=== PATIENT | male | born 1965 | race Caucasian/White ===

== ENCOUNTER 2016-06-25 19:41 | Emergency (ER) | payer OTHER ==
--- NOTE | 2016-06-25 22:56 | ED NURSING NOTES ---
Clinical Report - Nurses [facility] [address] [place] [address] 06/25/2016 19:41 Patient: CHRISTOPHE DREW TRIAGE Triage time 19:59 Jun 25 2016. Acuity: LEVEL 3. Chief Complaint: CHILLS and MUSCLE ACHES. 20:03 06/25/16. SEPSIS SCREEN: Sepsis Screen: negative. Infection suspected/documented. IGNACIO COMA SCORE: Ignacio Coma Scale: 15- eyes open spontaneously (4); best verbal response- oriented x 4 (5); best motor response- obeys commands (6). --20:03 Sara Felder 19:59 06/25/16. BP: 171/102. HR: 80. RR: 20. O2 saturation: 100% on room air. Temp: 98 F (oral). Pain level now: 5/10. --20:03 Sara Felder. Weight: 95.2 kg stated. Height/Length: 74 inches Per Patient. BMI: 27. --20:03 Sara Felder. Medications Cozaar Oral 50 mg, daily. --20:01 Sara Felder Cipro Oral. --20:01 Sara Felder Hydrocodone-Acetaminophen Oral. --20:01 Sara Felder. Medication/allergy information source: the patient. --20:03 Sara Felder. Allergies No Known Drug Allergy. --20:01 Sara Felder. History Arrived by private vehicle. Historian: patient. Unaccompanied. Primary physician (tyler marie). ( Patient states he is being treated for UTI. He states he went to the walk in last night and had his urine checked as he recently had a bladder surgery and has an indwelling catheter. He states he has not began feeling better and feels very ill. He reports muscle aches, chills and loss of appetite.). PAST MEDICAL HX: Immunizations: up-to-date. SOCIAL HX: Never smoker. History of drug use: marijuana. No alcohol use. ABUSE ASSESSMENT: No report of abuse. SELF HARM ASSESSMENT: A self harm assessment was performed. The patient answered "no" to the question "Have you recently felt down, depressed, or hopeless?", "Have you noticed less interest or pleasure in doing things?", "Do you have thoughts of harming or killing yourself?", "Are you here because you tried to hurt yourself?", "Have you ever tried to hurt yourself before today?", "Have you recently had thoughts about harming or killing others?" and "Do you have any dangerous items in your possession?". FALL RISK ASSESSMENT: Fall risk assessment completed. No fall risk identified. NUTRITIONAL RISK ASSESSMENT: The nutritional risk assessment revealed no deficiencies. FUNCTIONAL ASSESSMENT: Functional assessment: no impairments noted. LEARNING NEEDS ASSESSMENT: The learning needs assessment revealed no barriers. SKIN INTEGRITY ASSESSMENT: Skin integrity risk assessment completed. No skin integrity risk identified. --20:03 Sara eFlder. PROBLEMS: Pedal Edema. Back Pain. Hypertension. Paraplegic. --20:02 Sara Felder. ADDITIONAL SURGERIES: Back surgery . Bladder surgery- artificial bladder sphincter (unsuccessful) . Right wrist surgery . --20:02 Sara Felder. Interventions ID band on patient. To treatment room. --20:03 Sara Felder. PHYSICAL ASSESSMENT 20:06/25/16. To room via wheelchair. GENERAL / NEURO / PSYCH: Alert. Oriented X 4. He appears uncomfortable. HEENT: No facial asymmetry noted. Mucous membranes are pink. RESPIRATORY: Respirations not labored. CVS: Normal sinus rhythm noted. GI / : ( Flank pain on right side). SKIN: Skin is warm and dry. --20:04 Sara Felder. NURSING PROGRESS NOTES 20:04 06/25/16. Pulse oximeter and NIBP monitor placed on patient; monitor alarms on. Patient gowned. Reassurance given to the patient. Two patient identifiers checked. Call light placed in reach. Side rails up x 1. Bed placed in lowest position. Brakes of bed on. Patient ready for evaluation- chart flagged and ED physician notified. --20:04 Sara Felder 20:30 06/25/16. Patient ID band checked for patient name and birthdate: patient confirmed. Blood samples drawn from the right antecubital space with 23g butterfly by nurse ; labeled in presence of the patient and sent to lab: rainbow set: blood culture (1st set). --20:37 BradfordAndrewSara 20:50 06/25/2016 Two (2) unsuccessful IV access attempts including the left upper arm and hand. Applied bandaid and bandage. --20:50 Cm Echols R.N. 21:16 06/25/2016 Site #1 started via IV in the right forearm with an 20g angiocath, with aseptic technique and good blood return; one attempt. Saline lock flushed with 10 mL saline. --21:16 Bradford Sara 21:06/25/2016 Started bag #1 1000 mL IV Fluids IV NS (Saline); at 1000 mL/hr over 1 hour(s) via site #1 via IV pump. Allergies verified and confirmed 5 rights. IV patency established. IV site checked: no pain, redness, or swelling. IV flushed thoroughly pre- and post-medication administration. --21:16 Bradford Sara 21:06/25/2016 Clonidine PO Tablets 0.2 mg given. Allergies verified and confirmed 5 rights. --21:16 Sara Felder Patient ID band checked for patient name and birthdate: patient confirmed. Instructions provided to collect clean catch urine and patient verbalized understanding. Catheterized urine collected with return of yellow-colored cloudy urine; sample sent to lab for urinalysis and culture. (Pulled from patients boyd). --21:16 Sara Felder 21:06/25/16. BP: 160/97. HR: 79. RR: 20. O2 saturation: 97% on room air. --21:16 Sara Felder 22:06/25/2016 IV Fluids IV NS Discontinued: bag #1 completed. Total amount infused: 1000 mL. IV patency established. IV site checked: no pain, redness, or swelling. IV flushed thoroughly. --22:08 Sara Felder 22:06/25/16. BP: 157/96. HR: 76. RR: 20. O2 saturation: 99% on room air. Pain level now: 5/10. --22:08 Sara Felder. DISPOSITION / DISCHARGE 22:56 06/25/16. BP: 147/86. HR: 70. RR: 20. O2 saturation: 98% on room air. Temp: 98 F (oral). Pain level now: 08/11. --22:57 Sara Felder 22:55 06/25/2016 Site #1 removed upon discharge. Catheter intact. Bandaid applied. --23:14 Sara Felder 22:57 06/25/16. Condition at departure: stable. No learning barriers present. Discharge instructions provided and reviewed with the patient. Reviewed need for increased fluid intake. Patient verbalized understanding. Written instructions provided in Portuguese. ( Follow up with your PCP in three days. Increase fluids and continue taking the antibiotics as directed. We will call you if your urine cultures grow any concerning bacteria. Return if symptoms worsen.). The patient was discharged by the physician. He was discharged home and accompanied by music therapy specialist. He left the Emergency Department in a wheelchair and via private vehicle. Animal Attendant driving. --23:14 Sara Felder 22:57 06/25/16. Condition at departure: stable. The goals identified in the patient's plan of care were met. FALL RISK ASSESSMENT: Fall risk assessment completed. No fall risk identified. --22:57 Sara Felder. Locked/Released at 06/25/2016 23:15 by Sara Felder,
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
--- NOTE | 2016-06-25 22:57 | ED ORDER SUMMARY ---
..... Patient: CHRISTOPHE DREW OrderSheet [facility] VisitID: [id number] [address] [place] [address] 51y, M Registration Date/Time: 06/25/2016 ORDER SHEET Weight: 95.2 kg (stated) Allergies: No Known Drug Allergy GENERAL ORDERS: Blood Culture (Yes) (cipro) Urgent (20:15 06/25/2016 Tali TURNER) (Ack 20:18 AMcQuoid ER Tech1) (20:35 HSoule) CBC w Diff Urgent (20:16 06/25/2016 Tali TURNER) (Ack 20:18 AMcQuoid ER Tech1) (20:35 HSoule) CMP Urgent (20:16 06/25/2016 Tali TURNER) (Ack 20:18 AMcQuoid ER Tech1) (20:35 HSoule) UA-Culture if indicated Urgent (20:16 06/25/2016 Tali TURNER) (Ack 20:18 AMcQuoid ER Tech1) (21:16 HSoule) Amylase Urgent (20:16 06/25/2016 Tali TURNER) (Ack 20:18 AMcQuoid ER Tech1) (20:35 HSoule) Lipase Urgent (20:16 06/25/2016 Tali TURNER) (Ack 20:18 AMcQuoid ER Tech1) (20:35 HSoule) MEDICATION ORDERS: - (levothyroxinne 125 g by mouth now) (20:17 06/25/2016 Tali TURNER) (Ack 20:32 HSoule) (Cancelled: Other20:36 Tali TURNER) Clonidine PO 0.2 mg (NOW) (20:56 06/25/2016 Tali TURNER) (Ack 20:56 HSoule) (21:16 HSoule) IV FLUIDS: IV NS : initial bolus 1000 mL (1000 mL/hr), then 150 mL/hr for 4h (NOW); Urgent (20:16 06/25/2016 Tali TURNER) (Ack 20:17 HSoule) (21:16 HSoule) ORDER SHEET NOTES: [Electronically signed by Sara Felder (23:15 06/25/2016)] [Electronically signed by Carlos Malloy Dr. (01:14 06/28/2016)] [Electronically locked/signed by Sara Felder (23:15 06/25/2016)]
--- NOTE | 2016-06-25 22:57 | ED ORDER SUMMARY ---
..... Patient: CHRISTOPHE DREW OrderSheet [facility] VisitID: [id number] [address] [place] [address] 51y, M Registration Date/Time: 06/25/2016 ORDER SHEET Weight: 95.2 kg (stated) Allergies: No Known Drug Allergy GENERAL ORDERS: Blood Culture (Yes) (cipro) Urgent (20:15 06/25/2016 Tali TURNER) (Ack 20:18 AMcQuoid ER Tech1) (20:35 HSoule) CBC w Diff Urgent (20:16 06/25/2016 Tali TURNER) (Ack 20:18 AMcQuoid ER Tech1) (20:35 HSoule) CMP Urgent (20:16 06/25/2016 Tali TURNER) (Ack 20:18 AMcQuoid ER Tech1) (20:35 HSoule) UA-Culture if indicated Urgent (20:16 06/25/2016 Tali TURNER) (Ack 20:18 AMcQuoid ER Tech1) (21:16 HSoule) Amylase Urgent (20:16 06/25/2016 Tali TURNER) (Ack 20:18 AMcQuoid ER Tech1) (20:35 HSoule) Lipase Urgent (20:16 06/25/2016 Tali TURNER) (Ack 20:18 AMcQuoid ER Tech1) (20:35 HSoule) MEDICATION ORDERS: - (levothyroxinne 125 g by mouth now) (20:17 06/25/2016 Tali TURNER) (Ack 20:32 HSoule) (Cancelled: Other20:36 Tali TURNER) Clonidine PO 0.2 mg (NOW) (20:56 06/25/2016 Tali TURNER) (Ack 20:56 HSoule) (21:16 HSoule) IV FLUIDS: IV NS : initial bolus 1000 mL (1000 mL/hr), then 150 mL/hr for 4h (NOW); Urgent (20:16 06/25/2016 Tali TURNER) (Ack 20:17 HSoule) (21:16 HSoule) ORDER SHEET NOTES: [Electronically signed by Sara Felder (23:15 06/25/2016)] [Electronically signed by Carlos Malloy Dr. (01:14 06/28/2016)] [Electronically locked/signed by Sara Felder (23:15 06/25/2016)]
--- NOTE | 2016-06-28 01:15 | ED MAR SUMMARY ---
..... Medication Administration Record [facility] [address] [place] [address] Patient: CHRISTOPHE DREW Visit ID: [id number] 51y, M Weight: 95.2 kg Height/Length: 74 in BMI: 27 ALLERGIES: No Known Drug Allergy Start 21:16 06/25/2016 Sara Felder,, Stop 22:08 06/25/2016 Sara Felder, Medication Administered: IV NS (SALINE), Dose: IV Fluids over 1 hour(s), Rate: 1000 mL/hr, Dispensed: 1000 mL bag, Site: #1 right forearm. Medication Ordered: IV NS : initial bolus 1000 mL (1000 mL/hr), then 150 mL/hr for 4h (NOW); Urgent. Given 21:16 06/25/2016 Sara Felder, Medication Administered: CLONIDINE [PO], Dose: 0.2 mg Tablets PO. Medication Ordered: Clonidine PO 0.2 mg (NOW).
--- NOTE | 2016-06-28 01:15 | ED MED RECONCILIATION SUMMARY ---
Patient: CHRISTOPHE DREW Medication Reconciliation Report [facility] VisitID: [id number] [address] [place] [address] 51y, M Registration Date/Time: 06/25/2016 Weight: 95.2 kg Height/Length: 74 in. BMI: 27.0 ALLERGIES: No Known Drug Allergy The patient's Home Medications are listed below: CONTINUE TAKING THE FOLLOWING MEDICATIONS: Cipro Oral Cozaar Oral 50 mg, daily Hydrocodone-Acetaminophen Oral The source(s) of the original Home Medication information: patient The following Medications were given to the patient in the Emergency Department: IV NS IV Fluids bolus 0, then 1000 mL/hr, administered: 06/25/2016 9:16:00 PM Clonidine [PO] PO 0.2 mg, administered: 06/25/2016 9:16:00 PM The following Medications were prescribed to the patient: None.
--- NOTE | 2016-06-28 01:15 | ED DISCHARGE INSTRUCTIONS ---
Patient: CHRISTOPHE DREW General Instructions [facility] VisitID: [id number] [place] [address] 51y, M Registration Date/Time: 06/25/2016 06/25/2016 19:59 BP: 171/102. HR: 80. RR: 20. O2 saturation: 100%. Temp: 98 F. Pain level now: 5/10. Hypertensive. Oxygen saturation normal. Acute urinary tract infection (subsequent encounter). Essential hypertension. INSTRUCTIONS (a culture was run on your urine. If the bacteria causing your urinary tract infection are resistant to the antibiotic, we will give you a call for a different antibiotic. Continue to take the one you have been prescribed.). Warnings: GENERAL WARNINGS: Return or contact your physician immediately if your condition worsens or changes unexpectedly, if not improving as expected, or if other problems arise. Specifically return if pain, vomiting, bleeding, breathing difficulty or fever. Your Current Medications: CONTINUE TAKING THE FOLLOWING MEDICATIONS: Cipro Oral. Cozaar Oral : 50 mg daily. Hydrocodone-Acetaminophen Oral. Follow-up: Return to the emergency department as needed. Follow up with your doctor in three days. Reason for referral: recheck today's concerns. Summary of care provided to patient via paper. Screening today revealed the patient's blood pressure to be in the hypertensive range. The patient should follow up with a primary care provider for blood pressure management. Understanding of the discharge instructions verbalized by patient. ADDITIONAL INFORMATION Bladder Infection,Male (Adult) A bladder infection ("cystitis" or "UTI") usually causes a constant urge to urinate, and a burning when passing urine. Urine may be cloudy, smelly or dark. There may be also be pain in the lower abdomen. Cystitis in males is not common. It may be caused by a partial blockage in the urinary system that keeps the bladder from emptying completely. This is most often related to an enlarged prostate gland. Home Care: Drink lots of fluids (at least 6-8 glasses a day). This will flush the bacteria out of your bladder. Avoid sexual intercourse until your symptoms are gone. Avoid caffeine, alcohol, and spicy foods. They could irritate the bladder. A bladder infection is treated with antibiotics. You may also be given Pyridium (generic - phenazopyridine) to reduce burning with urination. This will cause urine to become a bright orange color, which can stain clothing. Follow Up with your doctor or this facility if ALL symptoms have not cleared within five days. It is important to keep your follow up appointment to discuss with your doctor the need for further tests of the urinary tract. Get Prompt Medical Attention if any of the following occur: Fever of 100.4F (38C) or higher, or as directed by your healthcare provider No improvement by the third day of treatment Increasing back or abdominal pain Repeated vomiting; unable to keep medicine down Weakness, dizziness or fainting High Blood Pressure -- To Be Confirmed [No Tx] Your blood pressure was higher today than normal. Sometimes anxiety or pain can cause a temporary rise in blood pressure that later returns to normal. If your blood pressure is high on one measurement, this does not mean that you have hypertension (a chronic illness). However, you must have your blood pressure measured again within the next few days to find out if its still high. A normal blood pressure is 120/80 or less. The first (top) number is the "systolic" pressure. The second (bottom) number is the "diastolic" pressure. Hypertension exists when either the top number is 140 or higher, OR the bottom number is 90 or higher on repeated measurements. Blood pressure in the range of 120-140 (systolic) or 80-89 (diastolic) is considered "pre-hypertension". This means your are at risk for getting hypertension. You should have regular blood pressure checks to be sure your blood pressure is not rising. Home Care: Measure your blood pressure on 3 different days and write down the results. This can be done at your doctor's office or this facility. Some pharmacies and grocery stores offer automated blood pressure machines for your use. Follow Up: If your blood pressure is "high" (over 120/80) on 2 out of 3 days, you will need to follow up with your doctor for further evaluation and treatment. DO NOT PUT THIS OFF! Untreated high blood pressure increases the risk for heart attack, also known as acute myocardial infarction, or AMI, and stroke. It is a treatable condition. Get Prompt Medical Attention if any of the following occur: Chest pain or shortness of breath Severe headache Throbbing or rushing sound in the ears Nosebleed Sudden severe abdominal pain Extreme drowsiness, confusion or fainting Dizziness or vertigo (dizziness with spinning sensation) Weakness of an arm or leg or one side of the face Difficulty with speech or vision You have been given the following additional information: Bladder Infection, Male (Adult) Hypertension, To Be Confirmed (Electronically signed by Carlos Malloy Dr. 06/28/2016 1:14)
--- NOTE | 2016-06-28 01:15 | ED MAR SUMMARY ---
..... Medication Administration Record [facility] [address] [place] [address] Patient: CHRISTOPHE DREW Visit ID: [id number] 51y, M Weight: 95.2 kg Height/Length: 74 in BMI: 27 ALLERGIES: No Known Drug Allergy Start 21:16 06/25/2016 Sara Felder,, Stop 22:08 06/25/2016 Sara Felder, Medication Administered: IV NS (SALINE), Dose: IV Fluids over 1 hour(s), Rate: 1000 mL/hr, Dispensed: 1000 mL bag, Site: #1 right forearm. Medication Ordered: IV NS : initial bolus 1000 mL (1000 mL/hr), then 150 mL/hr for 4h (NOW); Urgent. Given 21:16 06/25/2016 Sara Felder, Medication Administered: CLONIDINE [PO], Dose: 0.2 mg Tablets PO. Medication Ordered: Clonidine PO 0.2 mg (NOW).
--- NOTE | 2016-06-28 01:15 | ED MED RECONCILIATION SUMMARY ---
Patient: CHRISTOPHE DREW Medication Reconciliation Report [facility] VisitID: [id number] [address] [place] [address] 51y, M Registration Date/Time: 06/25/2016 Weight: 95.2 kg Height/Length: 74 in. BMI: 27.0 ALLERGIES: No Known Drug Allergy The patient's Home Medications are listed below: CONTINUE TAKING THE FOLLOWING MEDICATIONS: Cipro Oral Cozaar Oral 50 mg, daily Hydrocodone-Acetaminophen Oral The source(s) of the original Home Medication information: patient The following Medications were given to the patient in the Emergency Department: IV NS IV Fluids bolus 0, then 1000 mL/hr, administered: 06/25/2016 9:16:00 PM Clonidine [PO] PO 0.2 mg, administered: 06/25/2016 9:16:00 PM The following Medications were prescribed to the patient: None.
== END 2016-06-25 23:00 | disposition home or self-care (01) ==
LOC: ED SRH 19:41
DX: N39.0 Urinary tract infection, site not specified (principal); I10 Essential (primary) hypertension; Z79.899 Other long term (current) drug therapy
CPT/HCPCS: 90004; 90065; 90070; 90074; 90100; 90469; 92235; 92530; 95059

== ENCOUNTER 2016-09-28 20:58 | Emergency (ER) | payer OTHER ==
--- NOTE | 2016-09-29 00:32 | ED ORDER SUMMARY ---
..... Patient: CHRISTOPHE DREW OrderSheet [facility] VisitID: [id number] [address] [place] [address] 51y, M Registration Date/Time: 09/28/2016 ORDER SHEET Weight: 99.7 kg (stated) Allergies: No Known Drug Allergy GENERAL ORDERS: CBC w Diff Urgent (21:57 09/28/2016 Sp TURNER) (Ack 22:00 ALawrence ER Tech1) (Collected 22:49 RMarsden R.N.) (23:33 ALawrence ER Tech1) CMP Urgent (21:57 09/28/2016 Sp TURNER) (Ack 22:00 ALawrence ER Tech1) (Collected 22:49 RMarsden R.N.) (23:33 ALawrence ER Tech1) UA-Culture if indicated Urgent (21:57 09/28/2016 Sp TURNER) (Collected 21:57 RMarsden R.N.) (22:43 ALawrence ER Tech1) Lactate, Serum Urgent (21:57 09/28/2016 Sp TURNER) (Ack 22:00 ALawrence ER Tech1) (Collected 22:49 RMarsden R.N.) (23:37 RMarsden R.N.) - (NEW TUBING TO COLLECT SAMPLE) (21:58 09/28/2016 Sp TURNER) (22:43 ALawrence ER Tech1) MEDICATION ORDERS: IV FLUIDS: IV Saline Lock (21:57 09/28/2016 Sp TURNER) (22:52 RMarsden R.N.) Ceftriaxone IV 1 gm/50mL (NOW) (00:30 09/29/2016 Sp TURNER) (Ack 0:34 RMarsden R.N.) (0:42 RMarsden R.N.) ORDER SHEET NOTES: [Electronically signed by Ailin Valdez R.N. (02:58 09/29/2016)] [Electronically signed by Warren Hayward MD (12:17 10/01/2016)] [Electronically locked/signed by Ailin Valdez R.N. (02:58 09/29/2016)]
--- NOTE | 2016-09-29 00:32 | ED NURSING NOTES ---
Clinical Report - Nurses [facility] [address] [place] [address] 09/28/2016 20:57 Patient: CHRISTOPHE DREW TRIAGE Triage time 21:37. Acuity: LEVEL 3. Chief Complaint: CHILLS and ACHES ("urine smells like ammonia"). 21:54 09/28/16. Alert. No acute distress. SEPSIS SCREEN: Sepsis Screen. Negative (no infection suspected/documented). IGNACIO COMA SCORE: Ignacio Coma Scale: 15- eyes open spontaneously (4); best verbal response- oriented x 4 (5); best motor response- obeys commands (6). --21:54 Ailin Valdez R.N. 21:40 09/28/16. BP: 141/78. HR: 93. RR: 16. O2 saturation: 94%. Temp: 98.8 F. Pain level now: 09/11. --21:54 Ailin Valdez R.N. Weight: 99.7 kg stated. Height/Length: 74 inches Per Patient. BMI: 28.2. --21:53 Ailin Valdez R.N. Medications Cozaar Oral 50 mg, daily. --21:51 Ailin Valdez R.N. Stool Softener Oral. --21:51 Ailin Valdez R.N. Vicodin Oral. --21:52 Ailin Valdez R.N. Multivitamins Oral. --21:52 Ailin Valdez R.N. Allergies No Known Drug Allergy. --21:51 Ailin Valdez R.N. History Arrived by private vehicle. Historian: patient. Accompanied by family. Primary physician (Dr Esteves). Onset. (3 days ago). ( Patient states "My urine smells strongly of ammonia, even though I've been drinking a lot of water". He states he does not feel any sensation in his urethra due to T12 paraplegia.). 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 PAST MEDICAL HX: Immunizations: up-to-date. SOCIAL HX: Smoker- current status unknown. Alcohol use. (patient states he hasnt had a drink since april.). No drug use. No known contact with a sick individual. FALL RISK ASSESSMENT: Fall risk assessment completed. No fall risk identified. NUTRITIONAL RISK ASSESSMENT: The nutritional risk assessment revealed no deficiencies. FUNCTIONAL ASSESSMENT: Functional assessment: no impairments noted. LEARNING NEEDS ASSESSMENT: The learning needs assessment revealed no barriers. SKIN INTEGRITY ASSESSMENT: Skin integrity risk assessment completed. No skin integrity risk identified. --21:54 Ailin Valdez R.N. PROBLEMS: Pedal Edema. Back Pain. Hypertension. Paraplegic. --21:52 Ailin Valdez R.N. UTI - Urinary Tract Infection [RuleOut]. --00:32 Warren Hayward MD The following entry was modified by Warren Hayward MD, 00:32 <<STRICKEN ENTRY-- UTI - Urinary Tract Infection. --22:53 Ailin Valdez R.N. --END STRIKE>>. ADDITIONAL SURGERIES: Back surgery . Bladder surgery- artificial bladder sphincter (unsuccessful) . Right wrist surgery . --21:52 Ailin Valdez R.N. Interventions ID band on patient. To treatment room. --21:54 Ailin Valdez R.N. PHYSICAL ASSESSMENT 21:55 09/28/16. To room via wheelchair. GENERAL / NEURO / PSYCH: Alert. Oriented X 4. Appears in no acute distress. HEENT: Mucous membranes are pink. RESPIRATORY: Respirations not labored. CVS: Capillary refill less than 2 seconds. GI / : Abdomen soft. Bowel sounds within normal limits. SKIN: Skin is warm and dry. --21:55 Ailin Valdez R.N. NURSING PROGRESS NOTES 21:55 09/28/16. Patient gowned. Two patient identifiers checked. Call light placed in reach. Side rails up x 2. Bed placed in lowest position. Brakes of bed on. Patient ready for evaluation- chart flagged and notification provided. --21:55 Ailin Valdez R.N. 22:42 09/28/2016 Site #1 started via IV in the right wrist with an 20g angiocath; one attempt. Blood drawn: rainbow set. Labeled in the presence of the patient and sent to the lab. Saline lock flushed with 10 mL saline. --22:52 Ailin Valdez R.N. 00:37 09/29/2016 Started 1 gm of Ceftriaxone IVPB in bag #1 50 mL; at 110 mL/hr over 28 minute(s) via site #1 via IV pump. Allergies verified and confirmed 5 rights. IV patency established. IV site checked: no pain, redness, or swelling. IV flushed thoroughly pre- and post-medication administration. Completed per protocol. --00:42 Ailin Valdez R.N. 01:14 09/29/2016 Ceftriaxone IVPB Discontinued: bag #1 completed upon discharge. Total amount infused: 50 mL. IV patency established. IV site checked: no pain, redness, or swelling. IV flushed thoroughly. --01:21 Ailin Valdez R.N. DISPOSITION / DISCHARGE 01:18. No learning barriers present. Discharge instructions provided and reviewed with the patient. Reviewed warnings. Reviewed medication(s). Treatments reviewed. Patient verbalized understanding. Written instructions provided in [place]er. The patient was discharged home and accompanied by spouse. He left the Emergency Department in a wheelchair and via private vehicle. Spouse driving. --01:21 Ailin Valdez R.N. 01:16 09/29/2016 Site #1 removed upon discharge. Manual pressure and bandaid applied. --01:21 Ailin Valdez R.N. 01:00 09/29/16. BP: 139/62. HR: 81. RR: 16. O2 saturation: 99%. Temp: deferred. Pain level now: 08/11. --01:22 Ailin Valdez R.N. Locked/Released at 09/29/2016 2:58 by Ailin Valdez R.N.
--- NOTE | 2016-09-29 00:32 | ED CLINICAL REPORT ---
Clinical Report - Physicians/Mid Levels [facility] [address] [place] [address] 09/28/2016 20:57 Patient: CHRISTOPHE DREW Time Seen: 21:50. Arrived- By private vehicle. Historian- patient. HISTORY OF PRESENT ILLNESS Chief Complaint: ASENCIO PROBLEM. (WITH CHILLS AND ASENCIO). This started today Mr. Drew is paraplegic. He notes chills and a feverish feeling. His asencio is draining normally. He has had a Asencio catheter for over a year and multiple failed sphincter procedures. The problem is described as moderate. No penile discharge, discomfort with urination, urinary frequency, Asencio catheter problem or inguinal swelling. Sexual history is noncontributory. Recent medical care: The patient was seen recently by a health care provider. ( 3 MONTHS PREVIOUS URINE CULTURE: CULTURE, URINE DATE: 06/28/16 CULTURE, URINE DATE: 06/28/16 PRELIM REPORT: FINAL REPORT GDE QUANTITATIVE URINE GROWTH: 50,000 TO 100,000 CFU/mL MXD QUANTITATIVE URINE GROWTH: 50,000 TO 100,000 CFU/mL ID AND SENS TO FOLLOW: NO FURTHER WORKUP AMOXICILLIN/CLAVULANATE AMPICILLIN S AMPICILLIN/SULBACTAM CEFAZOLIN CEFTRIAXONE CEPHALOTHIN CIPROFLOXACIN I DAPTOMYCIN S Fluoroquinolones should be considered secondary choices for Enterococcus therapy and used only when primary choices are contraindicated. GENTAMICIN LEVOFLOXACIN S LINEZOLID S NITROFURANTOIN S NORFLOXACIN OXACILLIN PENICILLIN TRIMETHOPRIM/SULFAMETHOXAZOLE VANCOMYCIN S GENTAMICIN SYNERGY SCREEN). REVIEW OF SYSTEMS No fever, abdominal pain, vomiting, sore throat or chest pain. No difficulty breathing. He has had chills. PAST HISTORY ( PCP: BRYAN Brar. Urologist [facility] T12l1 Paraplegin 30 PCP - Danielito Mendes at the [facility] in [place] [facility]rology - Noe Jose at [facility]. Problems: Pedal Edema. Back Pain. Hypertension. Paraplegic. Additional Surgeries: Back surgery . Bladder surgery- artificial bladder sphincter (unsuccessful) . Right wrist surgery). ADDITIONAL NOTES The nursing notes have been reviewed. PHYSICAL EXAM Vital Signs: 09/29/2016 01:00 BP: 139/62. HR: 81. RR: 16. O2 saturation: 99%. Pain level now: 510. 09/28/2016 21:40 BP: 141/78. HR: 93. RR: 16. O2 saturation: 94%. Temp: 98.8 F. Pain level now: 6/10. Appearance: Alert. No acute distress. ENT: Pharynx normal. CVS: Heart sounds normal. Respiratory: No respiratory distress. Abdomen: Not soft. Skin: Skin warm. Normal skin color. LABS, X-RAYS, AND EKG Laboratory Tests: Lactate, Serum: (GEENA: 09/29/2016 00:15) ( [facility] 09/29/2016 00:54) Final results Test Result Flag Units (Reference) LACTIC ACID 1.3 mmol/L (0.4-2.0) UA-Culture if indicated: (GEENA: 09/28/2016 21:41) ( [facility] 09/28/2016 22:53) Final results Test Result Flag Units (Reference) URINE COLOR YELLOW URINE APPEARANCE SL CLOUDY URINE GLUCOSE NEGATIVE (NEGATIVE) URINE BILIRUBIN NEGATIVE (NEGATIVE) URINE KETONE NEGATIVE (NEGATIVE) URINE SPECIFIC GRAVITY 1.010 (1.010-1.030) URINE PH 7.5 (5.0-8.0) URINE PROTEIN NEGATIVE (NEGATIVE) URINE UROBILINOGEN 1.0 EU/dL (0.2-1.0) URINE NITRITE NEGATIVE (NEGATIVE) URINE BLOOD 1+ (NEGATIVE) URINE LEUK ESTERASE POSITIVE (NEGATIVE) URINE RBC 0-1 rbc/hpf (0-1) URINE WBC 1-3 wbc/hpf (0-1) URINE EPITHELIAL CELLS 0-1 EPI/hpf (0-5) URINE BACTERIA MODERATE (2+ TO 3+) (NONE SEEN) URINE COMMENT CULTURE INDICATED 2+ TRIPLE PHOSPHATEURINE CULTURES ARE SET-UP BASED ON THE FOLLOWING CRITERIA:POSITIVE NITRITEPOSITIVE LEUKOCYTE ESTERASEGREATER THAN 10 WHITE BLOOD CELLSMODERATE (2+) OR GREATER BACTERIA CBC w Diff: (GEENA: 09/28/2016 22:41) ( [facility] 09/28/2016 22:55) Final results Test Result Flag Units (Reference) WHITE BLOOD COUNT 9.5 K/uL (4.5-11.5) RED BLOOD COUNT 4.89 M/uL (4.50-5.90) HEMOGLOBIN 14.0 gm/dL (13.5-17.5) HEMATOCRIT 41.7 % (41.0-53.0) MEAN CELL VOLUME 85 fL (80-100) MEAN CORPUSCULAR HGB 29 pg (26-34) MEAN CORPUSCULAR HGB CONC 34 g/dL (31-37) RED CELL DISTRIBUTION WIDTH 13.3 % (11.6-14.8) PLATELET COUNT 145 L K/uL (150-400) LYMPH % 27.3 % (25-40) MONO % 4.6 % (3-14) GRANULOCYTE % 68.1 % (53-90) CMP: (GEENA: 09/28/2016 22:41) ( MsgRcvd 09/28/2016 23:07) Final results Test Result Flag Units (Reference) GLUCOSE 152 H mg/dL (70-110) BUN 20 H mg/dL (7-18) CREATININE 0.9 mg/dL (0.6-1.3) Estimated GFR >60 mL/min Estimated GFR- >60 mL/min Note: Persistent reduction over 3 months in eGFR<60 mL/min/1.73 m2 defines CKD. Patients with eGFR values>=60 mL/min/1.73 m2 may also have CKD if evidence ofpersistent proteinuria. Additional information may be foundat www.kidney.org. SODIUM 140 mmol/L (136-145) POTASSIUM 3.8 mmol/L (3.5-5.1) CHLORIDE 104 mmol/L (98-107) CARBON DIOXIDE 27 mmol/L (21-32) CALCIUM 8.2 L mg/dL (8.5-10.1) TOTAL PROTEIN 6.7 g/dL (6.4-8.2) ALBUMIN 3.5 g/dL (3.3-5.0) BILIRUBIN, TOTAL 0.4 mg/dL (0.0-1.0) ALKALINE PHOSPHATASE 67 U/L (46-116) AST (SGOT) 17 U/L (15-37) ALT (SGPT) 28 U/L (12-78) Culture, Urine: (GEENA: 09/28/2016 21:41) ( MsgRcvd 09/30/2016 10:57) Final results Test Result Flag Units (Reference) CULTURE, URINE DATE: 09/30/16 NO SIGNIFICANT ISOLATION: NO SIGNIFICANT ISOLATION PRELIM REPORT: FINAL REPORT . PROGRESS AND PROCEDURES Course of Care: Pt does not wish to take his pants off but tells me that he regularly checks himself for skin breakdown and he tells me that he does not have any skin breakdown. 21:57 09/28/16. Q SOFFA negative but will need to be treated for UTI on the basis of chills and prior history even though the UA is not impressive. Disposition: Discharged. Condition: stable. CLINICAL IMPRESSION Probable urinary tract infection. INSTRUCTIONS (IMMEDIATE RECHECK IF WORSE). Prescription Medications: Macrobid 100 mg: take 1 capsule orally every 12 hours for 10 days. No refill. Follow-up: Follow up with your doctor in five days. Understanding of the discharge instructions verbalized by patient. (Electronically signed by Warren Hayward MD 10/01/2016 12:17)
--- NOTE | 2016-09-29 00:32 | ED NURSING NOTES ---
Clinical Report - Nurses [facility] [address] [place] [address] 09/28/2016 20:57 Patient: CHRISTOPHE DREW TRIAGE Triage time 21:37. Acuity: LEVEL 3. Chief Complaint: CHILLS and ACHES ("urine smells like ammonia"). 21:54 09/28/16. Alert. No acute distress. SEPSIS SCREEN: Sepsis Screen. Negative (no infection suspected/documented). IGNACIO COMA SCORE: Ignacio Coma Scale: 15- eyes open spontaneously (4); best verbal response- oriented x 4 (5); best motor response- obeys commands (6). --21:54 Ailin Valdez R.N. 21:40 09/28/16. BP: 141/78. HR: 93. RR: 16. O2 saturation: 94%. Temp: 98.8 F. Pain level now: 09/11. --21:54 Ailin Valdez R.N. Weight: 99.7 kg stated. Height/Length: 74 inches Per Patient. BMI: 28.2. --21:53 Ailin Valdez R.N. Medications Cozaar Oral 50 mg, daily. --21:51 Ailin Vladez R.N. Stool Softener Oral. --21:51 Ailin Valdez R.N. Vicodin Oral. --21:52 Ailin Valdez R.N. Multivitamins Oral. --21:52 Ailin Valdez R.N. Allergies No Known Drug Allergy. --21:51 Ailin Valdez R.N. History Arrived by private vehicle. Historian: patient. Accompanied by family. Primary physician (Dr Esteves). Onset. (3 days ago). ( Patient states "My urine smells strongly of ammonia, even though I've been drinking a lot of water". He states he does not feel any sensation in his urethra due to T12 paraplegia.). 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 PAST MEDICAL HX: Immunizations: up-to-date. SOCIAL HX: Smoker- current status unknown. Alcohol use. (patient states he hasnt had a drink since april.). No drug use. No known contact with a sick individual. FALL RISK ASSESSMENT: Fall risk assessment completed. No fall risk identified. NUTRITIONAL RISK ASSESSMENT: The nutritional risk assessment revealed no deficiencies. FUNCTIONAL ASSESSMENT: Functional assessment: no impairments noted. LEARNING NEEDS ASSESSMENT: The learning needs assessment revealed no barriers. SKIN INTEGRITY ASSESSMENT: Skin integrity risk assessment completed. No skin integrity risk identified. --21:54 Ailin Valdez R.N. PROBLEMS: Pedal Edema. Back Pain. Hypertension. Paraplegic. --21:52 Ailin Valdez R.N. UTI - Urinary Tract Infection [RuleOut]. --00:32 Warren Hayward MD The following entry was modified by Warren Hawyard MD, 00:32 <<STRICKEN ENTRY-- UTI - Urinary Tract Infection. --22:53 Ailin Valdez R.N. --END STRIKE>>. ADDITIONAL SURGERIES: Back surgery . Bladder surgery- artificial bladder sphincter (unsuccessful) . Right wrist surgery . --21:52 Ailin Valdez R.N. Interventions ID band on patient. To treatment room. --21:54 Ailin Valdez R.N. PHYSICAL ASSESSMENT 21:55 09/28/16. To room via wheelchair. GENERAL / NEURO / PSYCH: Alert. Oriented X 4. Appears in no acute distress. HEENT: Mucous membranes are pink. RESPIRATORY: Respirations not labored. CVS: Capillary refill less than 2 seconds. GI / : Abdomen soft. Bowel sounds within normal limits. SKIN: Skin is warm and dry. --21:55 Ailin Valdez R.N. NURSING PROGRESS NOTES 21:55 09/28/16. Patient gowned. Two patient identifiers checked. Call light placed in reach. Side rails up x 2. Bed placed in lowest position. Brakes of bed on. Patient ready for evaluation- chart flagged and notification provided. --21:55 Ailin Valdez R.N. 22:42 09/28/2016 Site #1 started via IV in the right wrist with an 20g angiocath; one attempt. Blood drawn: rainbow set. Labeled in the presence of the patient and sent to the lab. Saline lock flushed with 10 mL saline. --22:52 iAlin Valdez R.N. 00:37 09/29/2016 Started 1 gm of Ceftriaxone IVPB in bag #1 50 mL; at 110 mL/hr over 28 minute(s) via site #1 via IV pump. Allergies verified and confirmed 5 rights. IV patency established. IV site checked: no pain, redness, or swelling. IV flushed thoroughly pre- and post-medication administration. Completed per protocol. --00:42 Ailin Vadlez R.N. 01:14 09/29/2016 Ceftriaxone IVPB Discontinued: bag #1 completed upon discharge. Total amount infused: 50 mL. IV patency established. IV site checked: no pain, redness, or swelling. IV flushed thoroughly. --01:21 Ailin Valdez R.N. DISPOSITION / DISCHARGE 01:18. No learning barriers present. Discharge instructions provided and reviewed with the patient. Reviewed warnings. Reviewed medication(s). Treatments reviewed. Patient verbalized understanding. Written instructions provided in Palestinian. The patient was discharged home and accompanied by spouse. He left the Emergency Department in a wheelchair and via private vehicle. Spouse driving. --01:21 Ailin Valdez R.N. 01:16 09/29/2016 Site #1 removed upon discharge. Manual pressure and bandaid applied. --01:21 Ailin Valdez R.N. 01:00 09/29/16. BP: 139/62. HR: 81. RR: 16. O2 saturation: 99%. Temp: deferred. Pain level now: 08/11. --01:22 Ailin Valdez R.N. Locked/Released at 09/29/2016 2:58 by Ailin Valdez R.N.
--- NOTE | 2016-09-29 00:32 | ED CLINICAL REPORT ---
Clinical Report - Physicians/Mid Levels [facility] [address] [place] [address] 09/28/2016 20:57 Patient: CHRISTOPHE DREW Time Seen: 21:50. Arrived- By private vehicle. Historian- patient. HISTORY OF PRESENT ILLNESS Chief Complaint: ASENCIO PROBLEM. (WITH CHILLS AND ASENCIO). This started today Mr. Drew is paraplegic. He notes chills and a feverish feeling. His asencio is draining normally. He has had a Asencio catheter for over a year and multiple failed sphincter procedures. The problem is described as moderate. No penile discharge, discomfort with urination, urinary frequency, Asencio catheter problem or inguinal swelling. Sexual history is noncontributory. Recent medical care: The patient was seen recently by a health care provider. ( 3 MONTHS PREVIOUS URINE CULTURE: CULTURE, URINE DATE: 06/28/16 CULTURE, URINE DATE: 06/28/16 PRELIM REPORT: FINAL REPORT GDE QUANTITATIVE URINE GROWTH: 50,000 TO 100,000 CFU/mL MXD QUANTITATIVE URINE GROWTH: 50,000 TO 100,000 CFU/mL ID AND SENS TO FOLLOW: NO FURTHER WORKUP AMOXICILLIN/CLAVULANATE AMPICILLIN S AMPICILLIN/SULBACTAM CEFAZOLIN CEFTRIAXONE CEPHALOTHIN CIPROFLOXACIN I DAPTOMYCIN S Fluoroquinolones should be considered secondary choices for Enterococcus therapy and used only when primary choices are contraindicated. GENTAMICIN LEVOFLOXACIN S LINEZOLID S NITROFURANTOIN S NORFLOXACIN OXACILLIN PENICILLIN TRIMETHOPRIM/SULFAMETHOXAZOLE VANCOMYCIN S GENTAMICIN SYNERGY SCREEN). REVIEW OF SYSTEMS No fever, abdominal pain, vomiting, sore throat or chest pain. No difficulty breathing. He has had chills. PAST HISTORY ( PCP: BRYAN Brar. Urologist [facility] [id number] Paraplegin 30 PCP - Danielito Mendes at the [facility] in [place] [facility] - Noe Jose at [facility]. Problems: Pedal Edema. Back Pain. Hypertension. Paraplegic. Additional Surgeries: Back surgery . Bladder surgery- artificial bladder sphincter (unsuccessful) . Right wrist surgery). ADDITIONAL NOTES The nursing notes have been reviewed. PHYSICAL EXAM Vital Signs: 09/29/2016 01:00 BP: 139/62. HR: 81. RR: 16. O2 saturation: 99%. Pain level now: 510. 09/28/2016 21:40 BP: 141/78. HR: 93. RR: 16. O2 saturation: 94%. Temp: 98.8 F. Pain level now: 6/10. Appearance: Alert. No acute distress. ENT: Pharynx normal. CVS: Heart sounds normal. Respiratory: No respiratory distress. Abdomen: Not soft. Skin: Skin warm. Normal skin color. LABS, X-RAYS, AND EKG Laboratory Tests: Lactate, Serum: (GEENA: 09/29/2016 00:15) ( [facility] 09/29/2016 00:54) Final results Test Result Flag Units (Reference) LACTIC ACID 1.3 mmol/L (0.4-2.0) UA-Culture if indicated: (GEENA: 09/28/2016 21:41) ( [facility] 09/28/2016 22:53) Final results Test Result Flag Units (Reference) URINE COLOR YELLOW URINE APPEARANCE SL CLOUDY URINE GLUCOSE NEGATIVE (NEGATIVE) URINE BILIRUBIN NEGATIVE (NEGATIVE) URINE KETONE NEGATIVE (NEGATIVE) URINE SPECIFIC GRAVITY 1.010 (1.010-1.030) URINE PH 7.5 (5.0-8.0) URINE PROTEIN NEGATIVE (NEGATIVE) URINE UROBILINOGEN 1.0 EU/dL (0.2-1.0) URINE NITRITE NEGATIVE (NEGATIVE) URINE BLOOD 1+ (NEGATIVE) URINE LEUK ESTERASE POSITIVE (NEGATIVE) URINE RBC 0-1 rbc/hpf (0-1) URINE WBC 1-3 wbc/hpf (0-1) URINE EPITHELIAL CELLS 0-1 EPI/hpf (0-5) URINE BACTERIA MODERATE (2+ TO 3+) (NONE SEEN) URINE COMMENT CULTURE INDICATED 2+ TRIPLE PHOSPHATEURINE CULTURES ARE SET-UP BASED ON THE FOLLOWING CRITERIA:POSITIVE NITRITEPOSITIVE LEUKOCYTE ESTERASEGREATER THAN 10 WHITE BLOOD CELLSMODERATE (2+) OR GREATER BACTERIA CBC w Diff: (GEENA: 09/28/2016 22:41) ( [facility] 09/28/2016 22:55) Final results Test Result Flag Units (Reference) WHITE BLOOD COUNT 9.5 K/uL (4.5-11.5) RED BLOOD COUNT 4.89 M/uL (4.50-5.90) HEMOGLOBIN 14.0 gm/dL (13.5-17.5) HEMATOCRIT 41.7 % (41.0-53.0) MEAN CELL VOLUME 85 fL (80-100) MEAN CORPUSCULAR HGB 29 pg (26-34) MEAN CORPUSCULAR HGB CONC 34 g/dL (31-37) RED CELL DISTRIBUTION WIDTH 13.3 % (11.6-14.8) PLATELET COUNT 145 L K/uL (150-400) LYMPH % 27.3 % (25-40) MONO % 4.6 % (3-14) GRANULOCYTE % 68.1 % (53-90) CMP: (GEENA: 09/28/2016 22:41) ( MsgRcvd 09/28/2016 23:07) Final results Test Result Flag Units (Reference) GLUCOSE 152 H mg/dL (70-110) BUN 20 H mg/dL (7-18) CREATININE 0.9 mg/dL (0.6-1.3) Estimated GFR >60 mL/min Estimated GFR- >60 mL/min Note: Persistent reduction over 3 months in eGFR<60 mL/min/1.73 m2 defines CKD. Patients with eGFR values>=60 mL/min/1.73 m2 may also have CKD if evidence ofpersistent proteinuria. Additional information may be foundat www.kidney.org. SODIUM 140 mmol/L (136-145) POTASSIUM 3.8 mmol/L (3.5-5.1) CHLORIDE 104 mmol/L (98-107) CARBON DIOXIDE 27 mmol/L (21-32) CALCIUM 8.2 L mg/dL (8.5-10.1) TOTAL PROTEIN 6.7 g/dL (6.4-8.2) ALBUMIN 3.5 g/dL (3.3-5.0) BILIRUBIN, TOTAL 0.4 mg/dL (0.0-1.0) ALKALINE PHOSPHATASE 67 U/L (46-116) AST (SGOT) 17 U/L (15-37) ALT (SGPT) 28 U/L (12-78) Culture, Urine: (GEENA: 09/28/2016 21:41) ( MsgRcvd 09/30/2016 10:57) Final results Test Result Flag Units (Reference) CULTURE, URINE DATE: 09/30/16 NO SIGNIFICANT ISOLATION: NO SIGNIFICANT ISOLATION PRELIM REPORT: FINAL REPORT . PROGRESS AND PROCEDURES Course of Care: Pt does not wish to take his pants off but tells me that he regularly checks himself for skin breakdown and he tells me that he does not have any skin breakdown. 21:57 09/28/16. Q SOFFA negative but will need to be treated for UTI on the basis of chills and prior history even though the UA is not impressive. Disposition: Discharged. Condition: stable. CLINICAL IMPRESSION Probable urinary tract infection. INSTRUCTIONS (IMMEDIATE RECHECK IF WORSE). Prescription Medications: Macrobid 100 mg: take 1 capsule orally every 12 hours for 10 days. No refill. Follow-up: Follow up with your doctor in five days. Understanding of the discharge instructions verbalized by patient. (Electronically signed by Warren Hayward MD 10/01/2016 12:17)
--- NOTE | 2016-09-29 00:32 | ED ORDER SUMMARY ---
..... Patient: CHRISTOPHE DREW OrderSheet [facility] VisitID: [id number] [address] [place] [address] 51y, M Registration Date/Time: 09/28/2016 ORDER SHEET Weight: 99.7 kg (stated) Allergies: No Known Drug Allergy GENERAL ORDERS: CBC w Diff Urgent (21:57 09/28/2016 Sp TURNER) (Ack 22:00 ALawrence ER Tech1) (Collected 22:49 RMarsden R.N.) (23:33 ALawrence ER Tech1) CMP Urgent (21:57 09/28/2016 Sp TURNER) (Ack 22:00 ALawrence ER Tech1) (Collected 22:49 RMarsden R.N.) (23:33 ALawrence ER Tech1) UA-Culture if indicated Urgent (21:57 09/28/2016 Sp TURNER) (Collected 21:57 RMarsden R.N.) (22:43 ALawrence ER Tech1) Lactate, Serum Urgent (21:57 09/28/2016 Sp TURNER) (Ack 22:00 ALawrence ER Tech1) (Collected 22:49 RMarsden R.N.) (23:37 RMarsden R.N.) - (NEW TUBING TO COLLECT SAMPLE) (21:58 09/28/2016 Sp TURNER) (22:43 ALawrence ER Tech1) MEDICATION ORDERS: IV FLUIDS: IV Saline Lock (21:57 09/28/2016 Sp TURNER) (22:52 RMarsden R.N.) Ceftriaxone IV 1 gm/50mL (NOW) (00:30 09/29/2016 Sp TURNER) (Ack 0:34 RMarsden R.N.) (0:42 RMarsden R.N.) ORDER SHEET NOTES: [Electronically signed by Ailin Valdez R.N. (02:58 09/29/2016)] [Electronically signed by Warren Hayward MD (12:17 10/01/2016)] [Electronically locked/signed by Ailin Valdez R.N. (02:58 09/29/2016)]
--- NOTE | 2016-10-01 12:18 | ED DISCHARGE INSTRUCTIONS ---
Patient: CHRISTOPHE DREW General Instructions VisitID: [id number] [address] [place] [address] 51y, M Registration Date/Time: 09/28/2016 Probable urinary tract infection. INSTRUCTIONS (IMMEDIATE RECHECK IF WORSE). Prescription Medications: Macrobid 100 mg: take 1 capsule orally every 12 hours for 10 days. No refill. Follow-up: Follow up with your doctor in five days. Understanding of the discharge instructions verbalized by patient. ADDITIONAL INFORMATION Bladder Infection,Male (Adult) A bladder infection ("cystitis" or "UTI") usually causes a constant urge to urinate, and a burning when passing urine. Urine may be cloudy, smelly or dark. There may be also be pain in the lower abdomen. Cystitis in males is not common. It may be caused by a partial blockage in the urinary system that keeps the bladder from emptying completely. This is most often related to an enlarged prostate gland. Home Care: Drink lots of fluids (at least 6-8 glasses a day). This will flush the bacteria out of your bladder. Avoid sexual intercourse until your symptoms are gone. Avoid caffeine, alcohol, and spicy foods. They could irritate the bladder. A bladder infection is treated with antibiotics. You may also be given Pyridium (generic - phenazopyridine) to reduce burning with urination. This will cause urine to become a bright orange color, which can stain clothing. Follow Up with your doctor or this facility if ALL symptoms have not cleared within five days. It is important to keep your follow up appointment to discuss with your doctor the need for further tests of the urinary tract. Get Prompt Medical Attention if any of the following occur: Fever of 100.4F (38C) or higher, or as directed by your healthcare provider No improvement by the third day of treatment Increasing back or abdominal pain Repeated vomiting; unable to keep medicine down Weakness, dizziness or fainting Nitrofurantoin, Nitrofurantoin, Macrocrystalline Oral capsule What is this medicine? NITROFURANTOIN (kurt LEO toyn) is an antibiotic. It is used to treat urinary tract infections. How should I use this medicine? Take this medicine by mouth with a glass of water. Follow the directions on the prescription label. Take this medicine with food or milk. Take your doses at regular intervals. Do not take your medicine more often than directed. Do not stop taking except on your doctor's advice. Talk to your plate mill hand regarding the use of this medicine in children. While this drug may be prescribed for selected conditions, precautions do apply. What side effects may I notice from receiving this medicine? Side effects that you should report to your doctor or health home care liaison as soon as possible: allergic reactions like skin rash or hives, swelling of the face, lips, or tongue chest pain cough difficulty breathing dizziness, drowsiness fever or infection joint aches or pains pale or blue-tinted skin redness, blistering, peeling or loosening of the skin, including inside the mouth tingling, burning, pain, or numbness in hands or feet unusual bleeding or bruising unusually weak or tired yellowing of eyes or skin Side effects that usually do not require medical attention (report to your doctor or health home care liaison if they continue or are bothersome): dark urine diarrhea headache loss of appetite nausea or vomiting temporary hair loss What may interact with this medicine? antacids containing magnesium trisilicate probenecid quinolone antibiotics like ciprofloxacin, lomefloxacin, norfloxacin and ofloxacin sulfinpyrazone What if I miss a dose? If you miss a dose, take it as soon as you can. If it is almost time for your next dose, take only that dose. Do not take double or extra doses. Where should I keep my medicine? Keep out of the reach of children. Store at room temperature between 15 and 30 degrees C (59 and 86 degrees F). Protect from light. Throw away any unused medicine after the expiration date. What should I tell my health care provider before I take this medicine? They need to know if you have any of these conditions: anemia diabetes [id number] dehydrogenase deficiency kidney disease liver disease lung disease other chronic illness an unusual or allergic reaction to nitrofurantoin, other antibiotics, other medicines, foods, dyes or preservatives or trying to get breast-feeding What should I watch for while using this medicine? Tell your doctor or health home care liaison if your symptoms do not improve or if you get new symptoms. Drink several glasses of water a day. If you are taking this medicine for a long time, visit your doctor for regular checks on your progress. If you are diabetic, you may get a false positive result for sugar in your urine with certain brands of urine tests. Check with your doctor. You have been given the following additional information: Bladder Infection, Male (Adult) Nitrofurantoin, Nitrofurantoin, Macrocrystalline Oral capsule (Electronically signed by Warren Hayward MD 10/01/2016 12:17)
--- NOTE | 2016-10-01 12:18 | ED MED RECONCILIATION SUMMARY ---
Patient: CHRISTOPHE DREW Medication Reconciliation Report [facility] VisitID: [id number] [address] [place] [address] 51y, M Registration Date/Time: 09/28/2016 Weight: 99.7 kg Height/Length: 74 in. BMI: 28.2 ALLERGIES: No Known Drug Allergy The patient's Home Medications are listed below: THE FOLLOWING MEDICATIONS NEED TO BE RECONCILED: Cozaar Oral 50 mg, daily Multivitamins Oral Stool Softener Oral Vicodin Oral The source(s) of the original Home Medication information: Not obtained. The following Medications were given to the patient in the Emergency Department: Ceftriaxone [IVPB] IVPB bolus 0, then 1 gm 110 mL/hr, administered: 09/29/2016 12:37:00 AM The following Medications were prescribed to the patient: Macrobid 100 mg: take 1 capsule orally every 12 hours for 10 days. No refill. -- Warren Hayward MD
--- NOTE | 2016-10-01 12:18 | ED MED RECONCILIATION SUMMARY ---
Patient: CHRISTOPHE DREW Medication Reconciliation Report [facility] VisitID: [id number] [address] [place] [address] 51y, M Registration Date/Time: 09/28/2016 Weight: 99.7 kg Height/Length: 74 in. BMI: 28.2 ALLERGIES: No Known Drug Allergy The patient's Home Medications are listed below: THE FOLLOWING MEDICATIONS NEED TO BE RECONCILED: Cozaar Oral 50 mg, daily Multivitamins Oral Stool Softener Oral Vicodin Oral The source(s) of the original Home Medication information: Not obtained. The following Medications were given to the patient in the Emergency Department: Ceftriaxone [IVPB] IVPB bolus 0, then 1 gm 110 mL/hr, administered: 09/29/2016 12:37:00 AM The following Medications were prescribed to the patient: Macrobid 100 mg: take 1 capsule orally every 12 hours for 10 days. No refill. -- Warren Hayward MD
--- NOTE | 2016-10-01 12:18 | ED MAR SUMMARY ---
..... Medication Administration Record [facility] [address] [place] [address] Patient: CHRISTOPHE DREW Visit ID: [id number] 51y, M Weight: 99.7 kg Height/Length: 74 in BMI: 28.2 ALLERGIES: No Known Drug Allergy Start 00:37 09/29/2016 Ailin Valdez R.N., Stop 01:14 09/29/2016 Ailin Valdez R.N. Medication Administered: CEFTRIAXONE [IVPB], Dose: 1 gm IVPB over 28 minute(s), Rate: 110 mL/hr, Dispensed: 50 mL bag, Site: #1 right wrist. Medication Ordered: Ceftriaxone IV 1 gm/50mL (NOW).
--- NOTE | 2016-10-01 12:18 | ED DISCHARGE INSTRUCTIONS ---
Patient: CHRISTOPHE DREW General Instructions [facility] VisitID: [id number] [address] [place] [address] 51y, M Registration Date/Time: 09/28/2016 Probable urinary tract infection. INSTRUCTIONS (IMMEDIATE RECHECK IF WORSE). Prescription Medications: Macrobid 100 mg: take 1 capsule orally every 12 hours for 10 days. No refill. Follow-up: Follow up with your doctor in five days. Understanding of the discharge instructions verbalized by patient. ADDITIONAL INFORMATION Bladder Infection,Male (Adult) A bladder infection ("cystitis" or "UTI") usually causes a constant urge to urinate, and a burning when passing urine. Urine may be cloudy, smelly or dark. There may be also be pain in the lower abdomen. Cystitis in males is not common. It may be caused by a partial blockage in the urinary system that keeps the bladder from emptying completely. This is most often related to an enlarged prostate gland. Home Care: Drink lots of fluids (at least 6-8 glasses a day). This will flush the bacteria out of your bladder. Avoid sexual intercourse until your symptoms are gone. Avoid caffeine, alcohol, and spicy foods. They could irritate the bladder. A bladder infection is treated with antibiotics. You may also be given Pyridium (generic - phenazopyridine) to reduce burning with urination. This will cause urine to become a bright orange color, which can stain clothing. Follow Up with your doctor or this facility if ALL symptoms have not cleared within five days. It is important to keep your follow up appointment to discuss with your doctor the need for further tests of the urinary tract. Get Prompt Medical Attention if any of the following occur: Fever of 100.4F (38C) or higher, or as directed by your healthcare provider No improvement by the third day of treatment Increasing back or abdominal pain Repeated vomiting; unable to keep medicine down Weakness, dizziness or fainting Nitrofurantoin, Nitrofurantoin, Macrocrystalline Oral capsule What is this medicine? NITROFURANTOIN (kurt LEO toyn) is an antibiotic. It is used to treat urinary tract infections. How should I use this medicine? Take this medicine by mouth with a glass of water. Follow the directions on the prescription label. Take this medicine with food or milk. Take your doses at regular intervals. Do not take your medicine more often than directed. Do not stop taking except on your doctor's advice. Talk to your trade show specialist regarding the use of this medicine in children. While this drug may be prescribed for selected conditions, precautions do apply. What side effects may I notice from receiving this medicine? Side effects that you should report to your doctor or health care navigator as soon as possible: allergic reactions like skin rash or hives, swelling of the face, lips, or tongue chest pain cough difficulty breathing dizziness, drowsiness fever or infection joint aches or pains pale or blue-tinted skin redness, blistering, peeling or loosening of the skin, including inside the mouth tingling, burning, pain, or numbness in hands or feet unusual bleeding or bruising unusually weak or tired yellowing of eyes or skin Side effects that usually do not require medical attention (report to your doctor or health care navigator if they continue or are bothersome): dark urine diarrhea headache loss of appetite nausea or vomiting temporary hair loss What may interact with this medicine? antacids containing magnesium trisilicate probenecid quinolone antibiotics like ciprofloxacin, lomefloxacin, norfloxacin and ofloxacin sulfinpyrazone What if I miss a dose? If you miss a dose, take it as soon as you can. If it is almost time for your next dose, take only that dose. Do not take double or extra doses. Where should I keep my medicine? Keep out of the reach of children. Store at room temperature between 15 and 30 degrees C (59 and 86 degrees F). Protect from light. Throw away any unused medicine after the expiration date. What should I tell my health care provider before I take this medicine? They need to know if you have any of these conditions: anemia diabetes dbfverj-3-csdrnbgtu dehydrogenase deficiency kidney disease liver disease lung disease other chronic illness an unusual or allergic reaction to nitrofurantoin, other antibiotics, other medicines, foods, dyes or preservatives or trying to get breast-feeding What should I watch for while using this medicine? Tell your doctor or health care navigator if your symptoms do not improve or if you get new symptoms. Drink several glasses of water a day. If you are taking this medicine for a long time, visit your doctor for regular checks on your progress. If you are diabetic, you may get a false positive result for sugar in your urine with certain brands of urine tests. Check with your doctor. You have been given the following additional information: Bladder Infection, Male (Adult) Nitrofurantoin, Nitrofurantoin, Macrocrystalline Oral capsule (Electronically signed by Warren Hayward MD 10/01/2016 12:17)
--- NOTE | 2016-10-01 12:18 | ED MAR SUMMARY ---
..... Medication Administration Record [facility] [address] [place] [address] Patient: CHRISTOPHE DREW Visit ID: [id number] 51y, M Weight: 99.7 kg Height/Length: 74 in BMI: 28.2 ALLERGIES: No Known Drug Allergy Start 00:37 09/29/2016 Ailin Valdez R.N., Stop 01:14 09/29/2016 Ailin Valdez R.N. Medication Administered: CEFTRIAXONE [IVPB], Dose: 1 gm IVPB over 28 minute(s), Rate: 110 mL/hr, Dispensed: 50 mL bag, Site: #1 right wrist. Medication Ordered: Ceftriaxone IV 1 gm/50mL (NOW).
== END 2016-09-29 01:18 | disposition home or self-care (01) ==
LOC: ED SRH 20:58
DX: R68.83 Chills (without fever) (principal); I10 Essential (primary) hypertension; G82.20 Paraplegia, unspecified; Z96.0 Presence of urogenital implants; Z87.440 Personal history of urinary (tract) infections
CPT/HCPCS: 90004; 90100; 90469; 92031; 95059